=== PATIENT | female | born 1960 | race Caucasian/White ===

== ENCOUNTER 2020-02-10 08:05 | Emergency (ER) | payer OTHER ==
[2020-02-10] MEDS ORDERED: Morphine 10 MG/ML Syringe IVPUSH ONE (08:13)
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
--- NOTE | 2020-02-10 08:45 | CR ---
Chest: Supine view of the chest was obtained. Comparison: No prior chest imaging. Heart size and mediastinum are within normal limits for supine technique. Lungs are clear. No acute osseous finding is seen on this exam. Impression: 1. Nothing acute is appreciated on supine chest x-ray. Diagnostic code #1 This report was dictated in MDT
--- NOTE | 2020-02-10 08:45 | CT ---
Head CT Technique: Multiple axial sections through the brain were obtained. Intravenous contrast was not utilized. Comparison: No previous intracranial imaging. Findings: Ventricles along with basal cisterns and sulci over the convexities are within normal limits for the patient's age. No abnormal parenchymal densities are seen. No evidence of intracranial hemorrhage. No midline shift or mass-effect is seen. Bone window settings were reviewed. No acute calvarial abnormality is appreciated. Mucosal thickening is noted within both maxillary sinuses which is mild on the right side and moderate on the left side. Mastoid sinuses are clear. Impression: 1. Mucosal thickening within the paranasal sinuses as noted above. No air-fluid levels are seen and findings are most likely chronic. Please correlate that patient has no symptoms of pre-existing acute sinusitis. 2. Nothing acute is otherwise seen on noncontrast head CT exam. Diagnostic code #3 This report was dictated in MDT
[2020-02-10 08:46] LABS: BLOOD UREA NITROGEN,BUN 16 mg/dL (7.0-18.0); CHLORIDE,CL 101 mmol/L (98-107); GLUCOSE RANDOM 100 mg/dL (74-106); POTASSIUM,K 3.6 mmol/L (3.5-5.1); SODIUM,NA 139 mmol/L (136-145)
--- NOTE | 2020-02-10 08:52 | CT ---
CT cervical spine Technique: Multiple axial sections were obtained from above C1 inferiorly to the bottom of T2. Reconstructed sagittal and coronal images were reviewed. Comparison: No prior cervical spine imaging is available. Findings: Small bony density is noted off the anterior and superior arch of C1 which is felt to be degenerative in etiology. Mild disc space narrowing is noted at C4-5 and C5-6 as well as C6-7. Anterior osteophytes are noted most prominent at C6-7. Vertebral body heights are maintained. Mild scattered degenerative apophyseal change is seen. Minimal scoliosis is noted. No fracture is identified. No bony central or bony neural foraminal stenosis is seen. Impression: 1. Degenerative change as noted above. Mild scoliosis. 2. Nothing acute is seen on CT study of the cervical spine. Diagnostic code #2 This report was dictated in MDT
--- NOTE | 2020-02-10 08:52 | CR ---
Pelvis and left hip: AP view of the pelvis was obtained as well as AP and frog-leg lateral views left hip. Comparison: No prior pelvis or hip study. Joint spaces within both hips are preserved. Transitional segment is seen at the lumbosacral junction with an enlarged transverse process showing pseudoarticulation of the sacrum. This is a normal variant but can be an etiology for back pain. No fracture or other bony abnormality is seen. Impression: 1. Chronic finding as noted above. 2. Nothing acute is appreciated on AP pelvis or on two-view left hip exam. Diagnostic code #2 This report was dictated in MDT
[2020-02-10] MEDS ORDERED: Acetaminophen 325 MG Tab PO ONE (09:00)
== END 2020-02-10 09:33 | disposition home or self-care (01) ==
LOC: MW.ED 08:05
DX: S09.90XA Unspecified injury of head, initial encounter (principal); Z88.8 Allergy status to other drugs, medicaments and biological substances; Z79.899 Other long term (current) drug therapy; V59.49XA Driver of pick-up truck or van injured in collision with other motor vehicles in traffic accident, initial encounter
CPT/HCPCS: 36415; 70450; 71045; 72125; 73502; 80053; 85025; 85610; 99284; A9270